=== PATIENT | female | born 1935 ===

== ENCOUNTER 2017-11-20 06:05 | Inpatient (IN) | payer OTHER ==
[~2017-11-20] VITALS: Ht 152.4 cm; Wt 40.8 kg
[~2017-11-20 06:05] MED LIST: CALAN PO; COZAAR25 MG PO; VERAPAMIL ER240 MG PO
== END 2017-11-23 10:13 | disposition home or self-care (01) | DRG 330 ==
LOC: SURH 06:05 → O/R 06:05 → SURH 07:00 → CIR.AMB 08:49 → EDSTATUS 08:50 → SURH 08:50
PROVIDERS: Colon & Rectal Surgery
PROC: 0DBP0ZZ Excision of Rectum, Open Approach (ICD-10-PCS; 2017-11-20)
PROC: 0DQR0ZZ Repair Anal Sphincter, Open Approach (ICD-10-PCS; 2017-11-20)
PROC: 0DBN0ZZ Excision of Sigmoid Colon, Open Approach (ICD-10-PCS; principal; 2017-11-20 07:00)
DX: K62.3 Rectal prolapse (principal); K62.5 Hemorrhage of anus and rectum; R15.9 Full incontinence of feces; I11.9 Hypertensive heart disease without heart failure; D50.0 Iron deficiency anemia secondary to blood loss (chronic)